=== PATIENT | female | born 1975 | race Caucasian/White ===

== ENCOUNTER 2020-01-20 13:02 | Emergency (ER) | payer OTHER ==
[~2020-01-20] VITALS: Ht 172.7 cm; Wt 85.7 kg
[2020-01-20 13:48] VITALS: BP_SYST 127
[2020-01-20 15:25] VITALS: BP_SYST 125
== END 2020-01-20 15:25 | disposition home or self-care (01) ==
LOC: SED 13:02
DX: N93.8 Other specified abnormal uterine and vaginal bleeding (principal); I10 Essential (primary) hypertension; Z88.0 Allergy status to penicillin
CPT/HCPCS: 81002; 81025; 99283